=== PATIENT | female | born 1940 | race Hispanic/Latino ===

== ENCOUNTER 2016-11-30 07:09 | Day surgery (SDC) | payer MEDICARE, BC ==
[2016-11-26 08:47] VITALS: BMI 27.7
[2016-11-30] MEDS ORDERED: Propofol 10 mg/ml Inj (20 ML) ONE (08:34)
[2016-11-30] MEDS ORDERED: Lidocaine 2% Inj (20ml) ONE (08:35)
[2016-11-30] MEDS ORDERED: Sodium Chloride 0.9% 1,000 ML IV SCH (09:45)
[2016-11-30 10:30] VITALS: BP 132/70; PULSE 54; RESP 18; TEMP 97.6; O2SAT 98
== END 2016-11-30 11:02 | disposition home or self-care (01) ==
LOC: ENDO 07:09
PROVIDERS: ATTEND Internal Medicine Gastroenterology
DX: K25.9 Gastric ulcer, unspecified as acute or chronic, without hemorrhage or perforation (principal); R07.89 Other chest pain; R10.9 Unspecified abdominal pain; K29.80 Duodenitis without bleeding; K31.9 Disease of stomach and duodenum, unspecified; E11.9 Type 2 diabetes mellitus without complications; E78.5 Hyperlipidemia, unspecified
CPT/HCPCS: 43239; 82948; 88305; 88342; J2704; J3010; J7030; J7040